=== PATIENT | male | born 1980 | race Caucasian/White ===

== ENCOUNTER 2019-05-01 21:39 | Emergency (ER) | payer OTHER ==
[~2019-05-01] VITALS: Ht 167.6 cm; Wt 70.8 kg
== END 2019-05-01 23:18 | disposition home or self-care (01) ==
LOC: ER 21:39
DX: S01.521A Laceration with foreign body of lip, initial encounter (principal); Y08.89XA Assault by other specified means, initial encounter; Y93.89 Activity, other specified; Y92.69 Other specified industrial and construction area as the place of occurrence of the external cause; Y99.8 Other external cause status

== ENCOUNTER → 2019-05-09 | Emergency (ER) | payer OTHER ==
[~2019-05-09] VITALS: Ht 167.6 cm; Wt 70.8 kg
== END | disposition home or self-care (01) ==
LOC: ER 11:19
DX: Z48.02 Encounter for removal of sutures (principal)